=== PATIENT | male | born 1980 | race Asian ===

== ENCOUNTER 2020-05-04 11:25 | Emergency (ER) | payer MEDICAID, SELFPAY ==
[~2020-05-04] VITALS: Ht 177.8 cm; Wt 127.9 kg
[2020-05-04 11:33] VITALS: BP_SYST 146
[2020-05-04] MEDS ORDERED: KETOROLAC TROMETHAMINE 60 MG/2 ML VIAL IM ONE (12:30)
[2020-05-04 13:19] VITALS: BP_SYST 146
== END 2020-05-04 13:19 | disposition home or self-care (01) ==
LOC: SED 11:25
DX: N39.0 Urinary tract infection, site not specified (principal); R50.9 Fever, unspecified; Z20.828 Contact with and (suspected) exposure to other viral communicable diseases
CPT/HCPCS: 96372; 99283; J1885; U0003

== ENCOUNTER 2020-11-07 22:04 | Emergency (ER) | payer MEDICAID, SELFPAY ==
[~2020-11-07] VITALS: Ht 175.3 cm; Wt 127.0 kg
[2020-11-07 22:24] VITALS: BP_SYST 138
[2020-11-08] MEDS ORDERED: predniSONE 20 MG TABLET PO ONE (00:15)
[2020-11-08] MEDS ORDERED: FAMOTIDINE 20 MG TABLET PO ONE (00:15)
[2020-11-08] MEDS ORDERED: predniSONE 20 MG TABLET ONE (00:22)
[2020-11-08 00:32] VITALS: BP_SYST 136
== END 2020-11-08 00:33 | disposition home or self-care (01) ==
LOC: SED 22:04
DX: T78.40XA Allergy, unspecified, initial encounter (principal); X58.XXXA Exposure to other specified factors, initial encounter
CPT/HCPCS: 99283; J7512

== ENCOUNTER 2020-11-08 22:22 | Emergency (ER) | payer MEDICAID ==
[~2020-11-08] VITALS: Ht 172.7 cm; Wt 126.6 kg
[2020-11-08 22:40] VITALS: BP_SYST 138
--- NOTE | 2020-11-08 22:40 | NUR ---
Patient to [facility] to gown for evaluation. Side rails up.
--- NOTE | 2020-11-08 22:46 | NUR ---
SUNNI Aponte at bedside examining patient.
[2020-11-08] MEDS ORDERED: FAMOTIDINE 20 MG TABLET PO ONE (23:15)
[2020-11-08] MEDS ORDERED: DIPHENHYDRAMINE HCL 12.5 MG/5 ML UDC PO ONE (23:15)
[2020-11-08 23:45] VITALS: BP_SYST 151
--- NOTE | 2020-11-08 23:45 | NUR ---
Patient given written and verbal discharge instructions and verbalizes understanding. ER MD discussed with patient the results and treatment provided. Patient in stable condition. ID arm band removed. Rx of benadryl and famotidine given. Patient educated on pain management and to follow up with PMD. Pain Scale 0. Opportunity for questions provided and answered. Medication side effect fact sheet provided.
== END 2020-11-08 23:45 | disposition home or self-care (01) ==
LOC: SED 22:22
DX: T78.2XXA Anaphylactic shock, unspecified, initial encounter (principal); L50.9 Urticaria, unspecified; X58.XXXA Exposure to other specified factors, initial encounter
CPT/HCPCS: 99283